=== PATIENT | male | born 1955 | race Caucasian/White ===

== ENCOUNTER 2022-01-02 05:21 | Emergency (ER) | payer OTHER, BC ==
[~2022-01-02] VITALS: Ht 177.8 cm; Wt 98.0 kg
[~2022-01-02 05:21] MED LIST: DULO60 PO; FARXIGA10 MG PO; HYDCHL25 PO; Hytrin1 MG PO; LISI20 PO; METFORMIN HCL500 M3 PO; METPHE20CR PO; TESTOSTERONE100 MG TOP
== END 2022-01-02 09:15 | disposition home or self-care (01) ==
LOC: ER 05:21
DX: S61.217A Laceration without foreign body of left little finger without damage to nail, initial encounter (principal); Z79.899 Other long term (current) drug therapy
CPT/HCPCS: 12001; 73120; 90714; 99282-25

== ENCOUNTER 2022-01-08 17:24 | Emergency (ER) | payer BC ==
[~2022-01-08] VITALS: Ht 177.8 cm; Wt 99.8 kg
== END 2022-01-08 17:46 | disposition home or self-care (01) ==
LOC: ER 17:24
DX: S61.217D Laceration without foreign body of left little finger without damage to nail, subsequent encounter (principal); X58.XXXD Exposure to other specified factors, subsequent encounter; Z79.899 Other long term (current) drug therapy
CPT/HCPCS: 99281

== ENCOUNTER 2024-06-07 07:00 | Day surgery (SDC) | payer BC, MEDICARE ==
[~2024-06-07] VITALS: Ht 408.9 cm; Wt 90.9 kg
[2024-06-07] MEDS ORDERED: Lactated Ringer's 1,000 ML IV ONE ×2 (07:34→08:18)
[2024-06-07] MEDS ORDERED: propofoL 50 ML IV ONE (07:34)
[2024-06-07] MEDS ORDERED: OZEMPIC1 MG/0.72 SC (08:13)
[2024-06-07 08:22] VITALS: BP 132/79
--- NOTE | 2024-06-07 08:26 | NUR ---
06/07/24 0826 Sara Hunt MD AT BEDSIDE. PT CANCELED AT THIS TIME PER MD RECOMMENDATIONS.
== END 2024-06-07 08:48 | disposition home or self-care (01) ==
LOC: ORSCSDS 07:00
DX: K92.1 Melena (principal); R19.8 Other specified symptoms and signs involving the digestive system and abdomen; Z53.9 Procedure and treatment not carried out, unspecified reason
CPT/HCPCS: 82947; J2704; J7120

== ENCOUNTER 2024-06-10 15:12 | Emergency (ER) | payer BC, MEDICARE ==
[~2024-06-10] VITALS: Ht 177.8 cm; Wt 84.4 kg
[~2024-06-10 15:12] MED LIST changes: +OZEMPIC1 MG/0.72 SC
[2024-06-10 16:26] LABS: BASOPHILS ABSOLUTE AUTO 0.05 K/mm3 (0.00-0.23); BASOPHILS PERCENT AUTO 0 % (0-2); EOSINOPHILS ABSOLUTE AUTO 0.11 K/mm3 (0.00-0.68); EOSINOPHILS PERCENT AUTO 1 % (0-6); Hematocrit 38.1 % (37.0-53.0); Hemoglobin 13.9 g/dL (13.5-17.5); IMMATURE GRAN ABSOLUTE AUTO 0.12 K/mm3 (0.00-0.10); IMMATURE GRAN PERCENT AUTO 1 % (0-1); LYMPHOCYTES PERCENT AUTO 18 % (21-46); MONOCYTES ABSOLUTE AUTO 1.02 K/mm3 (0.16-1.47); MONOCYTES PERCENT AUTO 8 % (4-13); Mean Corpuscular HGB 29.4 pg (26.0-34.0); Mean Corpuscular HGB Conc 36.5 g/dL (31.5-36.5); Mean Corpuscular Volume 81 fL (80-100); NEUTROPHILS ABSOLUTE AUTO 9.42 K/mm3 (1.96-9.15); NEUTROPHILS PERCENT AUTO 72 % (41-73); Platelet Count 448 K/mm3 (150-400); RDW Coefficient Variation 12.2 % (11.7-14.2); RDW Standard Deviation 35.3 fL (35.1-46.3); Red Blood Cell Count 4.72 M/mm3 (4.30-5.90); White Blood Cell Count 13.02 K/mm3 (4.00-11.30)
[2024-06-10 16:54] LABS: Albumin/Globulin Ratio 0.7 (0.8-1.8); Bilirubin, Total 0.8 mg/dL (0.1-1.0); Bun/Creatinine Ratio 19.9 (12.0-20.0); Calcium, Blood 9.3 mg/dL (8.5-10.1); Creatinine, Blood 0.75 mg/dL (0.60-1.20); Globulin, Blood 4.2 g/dL (2.2-4.0); Potassium, Blood 3.2 mmol/L (3.5-5.5); Total Protein, Blood 7.2 g/dL (6.4-8.2)
[2024-06-10] MEDS ORDERED: Potassium Chloride 20 MEQ TabCR PO ONE (18:55)
[2024-06-10] MEDS ORDERED: DULO60 PO (20:23)
[2024-06-10] MEDS ORDERED: TESTOSTERONE100 MG TOP (20:23)
[2024-06-10] MEDS ORDERED: METPHE20CR PO (20:23)
[2024-06-10] MEDS ORDERED: METF500 PO (20:23)
[2024-06-10] MEDS ORDERED: LISI20 PO (20:23)
[2024-06-10] MEDS ORDERED: Hydrochloroth12.5 MG PO (20:23)
[2024-06-10] MEDS ORDERED: Hytrin1 MG PO (20:23)
[2024-06-10 20:53] VITALS: BP 124/73
== END 2024-06-10 20:55 | disposition home or self-care (01) ==
LOC: ER 15:12
PROVIDERS: Student in an Organized Health Care Education/Training Program
DX: R00.2 Palpitations (principal); E87.6 Hypokalemia; I10 Essential (primary) hypertension; Z76.0 Encounter for issue of repeat prescription; Z79.84 Long term (current) use of oral hypoglycemic drugs; Z79.899 Other long term (current) drug therapy
CPT/HCPCS: 71046; 80053; 83735; 84484; 85025; 93005; 93010; 99285-25; A9270